=== PATIENT | female | born 1970 | race Caucasian/White ===

== ENCOUNTER 2022-06-17 12:52 | Outpatient (CLI) | payer BC, SELFPAY ==
[2022-06-17 10:30] LABS: Albumin* 4.2 g/dL (3.3-5.0); Chloride* 107 mmol/L (96-114); Potassium* 4.5 mmol/L (3.6-5.1); Sodium* 140 mmol/L (135-149)
[2022-06-17 10:32] LABS: Cholesterol* 193 mg/dL (90-199)
[2022-06-17 10:33] LABS: Alanine Aminotransferase* 34 U/L (4-35); Alkaline Phosphatase* 45 U/L (40-150); Aspartate Amino Transferase* 29 U/L (12-35); Bilirubin Total* 0.4 mg/dL (0.1-1.5); Blood Urea Nitrogen* 16 mg/dL (7-30); Carbon Dioxide* 27 mmol/L (20-32); Creatinine* 0.9 mg/dL (0.5-1.5); Estimated Glomerular Filt Rate 76 ml/min; Glucose* 100 mg/dL (60-115); HDL Cholesterol* 57 mg/dL (>=50); LDL Cholesterol Calculated 118 mg/dL (<100); Triglycerides* 89 mg/dL (40-149)
[2022-06-17 10:40] LABS: Vitamin D 25 Hydroxy* 48 ng/mL (30-80)
== END 2022-06-17 12:53 | disposition home or self-care (01) ==
PROVIDERS: PCP Family Medicine; Visit Provider Family Medicine
DX: Z01.419 Encounter for gynecological examination (general) (routine) without abnormal findings (principal); E78.5 Hyperlipidemia, unspecified; M85.80 Other specified disorders of bone density and structure, unspecified site; E66.9 Obesity, unspecified
CPT/HCPCS: 80053; 80061; 82306

== ENCOUNTER 2022-07-13 13:48 | Outpatient (CLI) | payer BC, SELFPAY ==
--- NOTE | 2022-07-13 14:00 | CRLHL7_ITS ---
For Patients: As a result of the Century Cures Act, medical imaging exams and procedure reports are released immediately into your electronic medical record. You may view this report before your referring provider. If you have questions, please contact your health care provider. DXA BONE MINERAL DENSITY STUDY Current height (in): 63.0. Weight (lb): 173.0. Menopause age: Premenopausal. Ethnicity: White. 1. Have you had a previous hip or vertebral fracture? No. 2. Have you had any fractures during your adult life which did not result from significant trauma (e.g., auto accident)? No. 3. Did either of your parents have a hip fracture? No. 4. Do you smoke? No. 5. Have you ever taken Glucocorticoids? No. 6. Do you have rheumatoid arthritis? No. 7. Do you have secondary osteoporosis? No. 8. Do you drink 3 or more alcoholic drinks per day? No. 9. Are you being treated for osteoporosis? No. 10. Have you ever taken any of the following medications: Actonel, Evista, Fosamax, Miacalcin, Reclast, Boniva, Forteo, HRT (i.e. estrogen/hormone therapy), Protelos, Prolia, Vitamin D, Calcium, other ??? please specify. ANSWER: Yes, vitamin D. 11. Do you have any of the following medical conditions: Anorexia or bulimia, asthma or emphysema, end stage renal disease, hyperparathyroidism, any seizure disorders, cancer, inflammatory bowel diseases, hysterectomy, other ??? please specify. ANSWER: Yes, cancer. 12. What was your maximum height (inches)? 63. 13. Do you perform weight bearing exercise regularly? Yes. 14. Do you regularly consume dairy products? Yes. 15. Do you drink caffeinated beverages? Yes. 16. At what age did your period start? 12. 17. Are you premenopausal? Yes. 18. How many full term pregnancies have you had? 2. 19. Have you ever missed your period for more than 6 months in a row (not including or menopause)? Yes. TECHNIQUE: Bone mineral density study was performed using the [employer]. FINDINGS: The results of the study expressed as bone mineral density (BMD) are as follows: Lumbar spine L1 to L4: BMD: 0.888 g/cm2. T-score: -1.4. Z-score: -0.5. Neck Left: BMD: 0.810 g/cm2. T-score: -0.3. Z-score: 0.6. Right: BMD: 0.818 g/cm2. T-score: -0.3. Z-score: 0.7. Total Left: BMD: 0.915 g/cm2. T-score: -0.2. Z-score: 0.4. Right: BMD: 0.982 g/cm2. T-score: 0.3. Z-score: 0.9. IMPRESSION: Osteopenia. Rey Tatum M.D. Diagnostic Radiologist [email or web address] PATRICK/colleen / be/Dictated by: Rey Tatum MD @ 07/14/2022 12:45:00 PM (Electronically Signed)
== END 2022-07-13 13:49 | disposition home or self-care (01) ==
LOC: RAD 13:49
PROVIDERS: PCP Family Medicine; Visit Provider Family Medicine
DX: Z78.0 Asymptomatic menopausal state (principal); M85.89 Other specified disorders of bone density and structure, multiple sites
CPT/HCPCS: 77080

== ENCOUNTER 2023-12-15 13:28 | Outpatient (REF) | payer BC, SELFPAY ==
--- OUTSIDE RECORDS SUMMARY | 2023-12-15 13:30 | XMS_ITS ---
Author Organization [facility] Address [address] [place] [address] Care Team Providers Care Inspector Name Role Phone Unavailable Unavailable Unavailable Surgery Details Not on file Complications Check Surgery Details section. Procedure Estimated Blood Loss Check Surgery Details section. Procedure Findings Check Surgery Details section. Procedure Specimens Taken Check Surgery Details section.
--- OUTSIDE RECORDS SUMMARY | 2023-12-15 13:30 | XMS_ITS | Referral Summary ---
Author Organization [facility] Address [address] [place] [id number] Care Team Providers Care Local Sales Associate Name Role Phone Elsewhere, Pcp Primary Care Provider Unavailabl e Source Comments Patient records contain information from all sites at [facility]. For routine questions regarding patient records, call [phone] during business hours, M-F 8:00 AM - 5:00 PM Central Time. Record requests for emergency care only can be directed to [phone] at any time.[facility] Encounters Date Type Department Care Team Description 11/27/2023 Orders Only [facility] in [place], [place] [address] [place] [address] Nelly Barger APRN, CLERICAL SUPERVISOR Perimenopause (Primary Dx) 11/13/2023 Orders Only [facility] in [place], [place] [address] [place] [address] Nelly Barger APRN, CLERICAL SUPERVISOR 11/01/2023 10:43 AM CDT - 11/01/2023 11:59 PM CDT Hospital Encounter Department of Radiology in [place], [place] [address] [place] [address] Nelly Barger APRN, CLERICAL SUPERVISOR Cancer Breast Personal History; Screening Mammogram Breast Cancer Discharge Disposition: Home or Self Care 11/01/2023 3:45 PM CDT Office Visit [facility] in [place], [place] [address] [place] [address] Nelly Barger APRN, CLERICAL SUPERVISOR Asymmetry Breast (Primary Dx); Cancer Breast Personal History; Radiation Therapy Personal History; Tamoxifen Therapy; Dense Breasts, Unspecified; Osteopenia; Screening Mammogram Breast Cancer from Last 3 Months Allergies Active Allergy Reactions Criticality Noted Date Comments Pollen Extracts Other (see comments) Medium 10/09/2019 sneezing Medications Medication Sig Dispensed Refills Start Date End Date Status fexofenadine (WARNER) 180 mg tablet Take 180 mg by mouth as needed for allergies. Active fluticasone (FLONASE) 50 mcg/actuation nasal spray Administer 2 sprays into affected nostril(s) as needed. 02/14/2011 Active RHOFADE 1 % cream Apply 1 application topically as needed. Rosacea 10/16/2017 Active cholecalciferol (VITAMIN D3) 50 mcg (2,000 Unit) capsule Take 2,000 Units by mouth daily. Active oxyBUTYnin (DITROPAN) 5 mg tablet Take 1/2 Tablet by mouth twice daily and may increase to 1 tablet twice daily as needed. Strength: 5 mg 90 tablet 3 12/28/2022 Active clobetasoL (TEMOVATE) 0.05 % cream Apply 1 Application topically 2 (two) times a day. 08/07/2023 Active letrozole (FEMARA) 2.5 mg tablet Take 1 tablet (2.5 mg total) by mouth daily. Take with or without food. 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 on 02/15/2018 Pathologic stage from 01/04/2018:No Stage Recommended(ypT1a, pN0, cM0, G2, ER+, VT+, HER2+) - Signed by Antonio Dominguez M.D. on 02/15/2018 Resolved Problems Problem Noted Date Diagnosed Date Resolved Date Malignant Neoplasm Of Breast Female Right 08/17/2017 09/25/2018 Malignant Primary Neoplasm ( Unknown Site) Unspecified 09/25/2018 Overview: breast Immunizations Name Administration Dates Next Due HepA Adult 05/24/2023 HepB Adult 06/01/2023(Deferred: Other - reports has had et is utd) Influenza TIV (IM) 03/17/2017, 5,04/03/2014,2012,04/20/2010 Influenza, Injectable, Mdck, Preservative Free, Quadrivalent 04/12/2019 PCV20 06/01/2023(Deferred: Other - has not had) RZV (SHINGRIX) 06/01/2023(Deferred: Other - will verify if has had 2nd dose with pcp),08/25/2022,10/04/2021,10/04/2021(D eferred: Other - Will check with pcp) SARS-COV-2 (COVID-19) - MODERNA(Discontinued) 02/26/2021,07/01/2020,06/03/2020 Td (Adult), adsorbed 09/25/2018 Tdap 12/20/2017,02/19/2008 influenza LAIV (Nasal) (2 ye ars through 49 years) 03/26/2009,05/22/2008 influenza vaccine quad (FLUZONE/FLUARIX) (6 months and older)(PF) 03/22/2023,04/22/2022,04/21/2021,2020,04/14/2020,04/09/2009 Social History Tobacco Use Types Packs/Day Years Used Date Smoking Tobacco: Never Passive Smoke Exposure: Never Smokeless Tobacco: Never Tobacco Cessation:Counseling Given: Not Answered Alcohol Use Standard Drinks/Week Comments Yes 2 (1 standard drink = 0.6 oz pure alcohol) Social alcohol consumption of 2-4 beverages per week, but no consumption while on chemotherapy Humiliation, Afraid, Rape, and Kick questionnair e Answer Date Recorded Within the last year, have y ou been afraid of your partner or ex-partner? No 06/29/2021 Within the last year, have y ou been humiliated or emotionally abused in other ways by your partner or ex-partner? No Within the last year, have y ou been kicked, hit, slapped, or otherwise physically hurt by your partner or ex-partner? No 06/29/2021 Within the last year, have y ou been raped or forced to have any kind of sexual activity by your partner or ex-partner? No 06/29/2021 Social Connection and Isolat ion Panel [NHANES] Answer Date Recorded In a typical week, how many times do you talk on the phone with family, friends, or neighbors? More than three times a week 06/29/2021 How often do you get togethe r with friends or relatives? Once a week 06/29/2021 How often do you attend chur or tenriism services? More than 4 times per year 06/29/2021 Do you belong to any clubs o r organizations such as scientologist groups, unions, fraternal or athletic groups, or school groups? Yes 06/29/2021 How often do you attend meet ings of the clubs or organizations you belong to? More than 4 times per year 06/29/2021 Are you , , di vorced, , never , or living with a partner? 06/29/2021 AUDIT-C Answer Date Recorded Q1: How often do you have a drink containing alc ohol? 2-3 times a week 06/29/2021 Q2: How many drinks containi ng alcohol do you have on a typical day when you are drinking? 1 or 2 06/29/2021 Q3: How often do you have si x or more drinks on one occasion? Never 06/29/2021 Overall Financial Resource Strain (CARDIA) Answe r Date Recorded How hard is it for you to pa y for the very basics like food, housing, medical care, and heating? Not hard at all 06/29/2021 PHQ-2 Answer Date Recorded PHQ-2 Score 0 11/14/2018 [facility] Occupat ional Health - Occupational Stress Questionnaire Answer Date Recorded Do you feel stress - tense, restless, nervous, or anxious, or unable to sleep at night because your mind is troubled all the time - these days? Only a little 06/29/2021 Exercise Vital Sign Answer Date Recorde d On average, how many days pe r week do you engage in moderate to strenuous exercise (like a brisk walk)? 4 days 06/29/2021 On average, how many minutes do you engage in exercise at this level? 30 min 06/29/2021 Hunger Vital Sign Answer Date Recorded Within the past 12 months, y ou worried that your food would run out before you got the money to buy more. Never true 06/29/19 22 Within the past 12 months, t he food you bought just didn't last and you didn't have money to get more. Never true 06/29/2021 PRAPARE - Transportation Answer Date Re corded In the past 12 months, has l ack of transportation kept you from medical appointments or from getting medications? No 06/06 In the past 12 months, has l ack of transportation kept you from meetings, work, or from getting things needed for daily living? No 06/29/2021 Housing Stability Vital Sign Answer Samuel e Recorded In the last 12 months, was t here a time when you were not able to pay the mortgage or rent on time? No 06/29/2021 In the last 12 months, how many places have you lived? 1 06/29/2021 In the last 12 months, was t here a time when you did not have a steady place to sleep or slept in a long-term (including now)? No 06/29/2021 Nutrition Answer Date Recorded On average, how many serving s of fruits and vegetables do you eat per day (serving size is equal to 1 cup or approximately the size of a tennis ball)? 4-5 06/29/2021 Dental Answer Date Recorded Dental: Regular Dentist Yes 08/07/19 21 Employment Answer Date Recorded Employment status Employed and actively working without restrictions 06/29/2021 Education Answer Date Recorded What is the highest level of school you have completed or the highest degree you have received? 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 at [facility] Hardware e.g. pins/screws/r ods [employer] [id number] / / Clp Hrzn Ti 6 [employer]inton Caputo Mickey - [id number] Implanted:Qty: 1 on 01/04/2018 by Chey Veloz M.D. at [facility] Hardware e.g. pins/screws/r ods [employer] [id number] / / Clp Hrzn Ti 6 [employer]inton [employer] Mickey - [id number] Implanted:Qty: 1 on 01/04/2018 by Chey Veloz M.D. at [facility] Hardware e.g. pins/screws/r ods [employer] [id number] / / Procedures Procedure Name Priority Date/Time Associated Diagnosis Comments BI BREAST SCREENING BILATERAL WITH TOMOSYNTHESIS RAD - Routine (most inpatients and all outpatients) 11/01/2023 11:13 AM CDT Cancer Breast Personal History Screening Mammogram Breast Cancer FOLLICLE-STIM HORMONE (FSH), S Routine 11/01/2023 10:32 AM CDT Tamoxifen Therapy Perimenopause ESTRADIOL, S Routine 11/01/2023 10:32 AM CDT Tamoxifen Therapy Perimenopause GLUCOSE, FASTING, S/P Routine 08/14/2017 12:33 PM CDT from Last 3 Months or Most Recently Relevant to Health Maintenance Results * BI Breast Screening Bilateral with Tomosynthesis (11/01/2023 11:13 AM CDT) Anatomical Region Laterality Modality Breast, Breast Imaging RST L OS, Breast Imaging ARZ LOS, Breast Imaging FLA LOS Bilateral Mammography Impressions 11/01/2023 12:23 PM CDT Benign. RECOMMENDATION: ??Annual Screening Mammogram ASSESSMENT: ??BI-RADS: 2: Benign. Narrative 11/01/2023 12:23 PM CDT EXAM: ??BI BREAST SCREENING BILATERAL WITH TOMOSYNTHESIS Current study was evaluated with a Computer Aided Detection (CAD) system. INDICATION: ??Screening mammogram. COMPARISON: ??Prior exam(s) were available and reviewed for comparison. DENSITY: ??c. The breast(s) are heterogeneously dense, which may obscure small masses. FINDINGS: ??No mammographic findings of malignancy. Posttreatment changes involving the posterior depth lower right breast and right axilla. Biopsy clips both breasts. Stable calcifications. Procedure Note Shade Nolasco M.D., Ph.D. - 11/01/2023 EXAM: BI BREAST SCREENING BILATERAL WITH TOMOSYNTHESIS Current study was evaluated with a Computer Aided Detection (CAD) system. INDICATION: Screening mammogram. COMPARISON: Prior exam(s) were available and reviewed for comparison. DENSITY: c. The breast(s) are heterogeneously dense, which may obscuresmall masses. FINDINGS: No mammographic findings of malignancy. Posttreatment changesinvolving the posterior depth lower right breast and right axilla. Biopsyclips both breasts. Stable calcifications. IMPRESSION: Benign. RECOMMENDATION: Annual Screening Mammogram ASSESSMENT: BI-RADS: 2: Benign. Nelly Barger APRN, CLERICAL SUPERVISOR IMG BI PROCEDURE S * Estradiol - (for men, children, and post-menopausal women) (11/01/2023 10:32 AM CDT) Estradiol, Mass Spectrometry, S <10 pg/mL 11/03/2023 9:28 AM CDT [facility] Comment: ----REFERENCE VALUE---- Premenopausal: 15-350 (E2 levels vary widely through the menstrual cycle.) Postmenopausal: <10 ----ADDITIONAL INFORMATION---- This test was developed and its performance characteristics determined by [facility] in a manner consistent with CLIA requirements. This test has not been cleared or approved by the U.S. Food and Drug Administration. Blood (Blood, Venous) 11/01/2023 10:32 AM CDT 11/02/2023 8:08 AM CDT Nelly Barger APRN CLERICAL SUPERVISOR LAB BLOOD NON AD D-ON Performing Organization Address [facility] Co de Phone Number [facility] [address] [place] [address] [facility] [address] [place] [address] [place] [address] * Follicle-Stimulating Hormone (FSH), Serum (11/01/2023 10:32 AM CDT) Pathologist [facility] Follicle-Stim Hormone (FSH), S 43.5 IU/L 11/01/2023 11:30 AM CDT [facility] Comment: ----REFERENCE VALUE---- Premenopausal: 2.9-14.6 IU/L (Follicular) 4.7-23.2 IU/L (Midcycle) 1.4-8.9 IU/L (Luteal) Postmenopausal: 16.0-157.0 IU/L Blood (Blood, Venous) 11/01/2023 10:32 AM CDT 11/01/2023 10:58 AM CDT KRISTIE Bowers APRN LAB BLOOD ADD-ON Performing Organization Address [facility] Co de Phone Number [facility] [address] [place] [address], [place] DTL [facility] [address] [place] [address] * Glucose, Fasting (08/14/2017 12:33 PM CDT) Pathologist [facility] Last Intake 18 HR [facility] Glucose, P 90 70 - 100 MG/DL [facility] 08/14/2017 12:3 3 PM CDT 08/14/2017 12:33 PM CDT Dasha Portillo M.D. LAB BLOOD NON ADD-ON [facility] [address] [place] [address], [facility] from Last 3 Months or Most Recently Relevant to Health Maintenance Advance Directives For more information, please contact: [phone] Documents on File Type Date Recorded Patient Cloth Mender Expl anation Advance Directives 08/08/2017 12:00 AM Lega cy document. See document viewer. * Full Code (Latest Code Status on File) Date Activated Date Inactivated Comments 08/20/2021 12:39 PM 08/20/2021 4:20 PM Question Answer Comments Full Code: Not Discussed Due to: Not medically appropriate * Full Code Date Activated Date Inactivated Comments 08/20/2021 9:31 AM 08/20/2021 12:39 PM Question Answer Comments Full Code: Discussed * Full Code Date Activated Date Inactivated Comments 01/04/2018 6:40 AM 01/04/2018 4:58 PM Question Answer Comments Full Code: Not Discussed Due to: Not medically appropriate Care Teams Local Sales Associate Relationship Specialty Start Date End Date Elsewhere, Pcp PCP - General Internal Medicine 08/20/21 Merry Munson M.D. [address] [place] [address] Medical Oncology 01/01/18 Elva Adhikari M.D. [address] [address] Family Medicine 01/04/18
--- OUTSIDE RECORDS SUMMARY | 2023-12-15 13:30 | XMS_ITS | Clinical Summary ---
Author Organization [facility] Address [address] [place] [address] Care Team Providers Care Foundry Worker Apprentice Name Role Phone Elsewhere, Pcp Primary Care Provider Unavailabl e Source Comments Patient records contain information from all sites at [facility]. For routine questions regarding patient records, call [phone] during business hours, M-F 8:00 AM - 5:00 PM Central Time. 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 on 02/15/2018 Pathologic stage from 01/04/2018:No Stage Recommended(ypT1a, pN0, cM0, G2, ER+, HI+, HER2+) - Signed by Antonio Dominguez M.D. on 02/15/2018 Resolved Problems Problem Noted Date Diagnosed Date Resolved Date Malignant Neoplasm Of Breast Female Right 08/17/2017 09/25/2018 Malignant Primary Neoplasm ( Unknown Site) Unspecified 09/25/2018 Overview: breast Encounters Date Type Department Care Team Description 11/27/2023 Orders Only [facility] in [place], [place] [address] [place] [address] Nelly Barger APRN, DIRECTOR OF ESTATE Perimenopause (Primary Dx) 11/13/2023 Orders Only [facility] in [place], [place] [address] [place] [address] Nelly Barger APRN, DIRECTOR OF ESTATE 11/01/2023 3:45 PM CDT Office Visit [facility] in [place], [place] [address] [place] [address] Nelly Barger ENGINEERING PROGRAM MANAGER, DIRECTOR OF ESTATE Asymmetry Breast (Primary Dx); Cancer Breast Personal History; Radiation Therapy Personal History; Tamoxifen Therapy; Dense Breasts, Unspecified; Osteopenia; Screening Mammogram Breast Cancer 11/01/2023 10:43 AM CDT - 11/01/2023 11:59 PM CDT Hospital Encounter Department of Radiology in [place], [place] [address] [place] [address] Nelly Barger, ENGINEERING PROGRAM MANAGER, DIRECTOR OF ESTATE Cancer Breast Personal History; Screening Mammogram Breast Cancer Discharge Disposition: Home or Self Care from Last 3 Months Immunizations Name Administration Dates Next Due HepA [...] quad (FLUZONE/FLUARIX) (6 months and older)(PF) 03/22/2023,04/22/2022,04/21/2021,2020,04/14/2020,04/09/2009 Family History Medical History Relation Name Comments Basal cell carcinoma of skin Brother 1 Dain Cardiac arrhythmia Brother 1 Dain Heart attack [facility] Cousin Maternal Cousi n No Known Problems Daughter Alcohol abuse Father Ed Shahzad Recovered Basal cell carcinoma of skin Father Ed Shahzad Coronary artery disease Father Ed Shahzad Araceli nary Artery disease and stent Diabetes Father Ed Shahzad Type 2 diabetes Heart failure Father Ed Shahzad at 86 Hyperlipidemia Father Ed Shahzad Hypertension Father Ed Shahzad Parkinson disease Father Ed Shahzad Skin cancer Father Ed Shahzad Sleep apnea Father Ed Shahzad Stroke Father Ed Shahzad Stomach cancer Maternal Grandfather Hodgkin's lymphoma Maternal Grandmother Kenyatta Root Other cancer Maternal Grandmother Kenyatta Root Hodgk ins Disease Arthritis Mother Shari Pike Basal cell carcinoma of skin Mother Shari Pike Endometrial cancer Mother Shari Pike Skin cancer Mother Shari Pike Squamous cell carcinoma Mother Shari Pike Uterine cancer Mother Shari Pike Heart attack Paternal Grandfather Ish Root Other cancer Paternal Grandfather Ish Root Stoma ch Cancer Stroke Paternal Grandmother Amalia Pike Basal cell carcinoma of skin Sister 1 danny 2 sisters, both have had basal cell carcinoma Basal cell carcinoma Sister 2 reynaldo No Known Problems Son Relation Name Status Comments Brother 1 Dain Alive Brother 2 Julio Cesar Morse Cousin Daughter Alive Father Oumar Pike Maternal Grandfather Maternal Grandmother Kenyatta Root Mother Shari Pike Alive Paternal Grandfather Ish Root Paternal Grandmother Amalia Pike Sister 1 danny Alive Sister 2 reynaldo Alive Son Alive Social History Tobacco Use Types Packs/Day Years [...] week 06/29/2021 How often do you attend [facility] or hoahaoism services? More than 4 times per year 06/29/2021 Do you belong to any clubs o r organizations such as islam groups, unions, fraternal or athletic groups, or [...] Answer Date Recorded PHQ-2 Score 0 11/14/2018 [facility] of Occupat ional Health - Occupational Stress [...] place to sleep or slept in a group home (including now)? No 06/29/2021 Nutrition Answer Date Recorded On average, how many serving s of fruits and vegetables do you eat per day (serving size is equal to 1 cup or approximately the size of a tennis ball)? 4-5 06/29/2021 Dental Answer Date Recorded Dental: Regular Dentist Yes 08/07/19 Employment Answer Date Recorded Employment status Employed [...] PM CDT Pulse 76 06/12/2023 10:43 AM MEDICAL RECORDS MANAGER Temperature 36.6 ??C (97.9 ??F) 08/20/2021 12:57 PM C DT Respiratory Rate 16 08/20/2021 1:38 PM CDT Oxygen Saturation 100% 08/20/2021 12:57 PM CDT Inhaled Oxygen Concentration - - Weight 77.6 kg (171 lb 1.2 oz) 11/01/2023 12:57 PM CDT Height 159.2 cm (5' 2.68) 11/01/2023 12:57 PM C DT Body Mass Index 30.62 11/01/2023 12:57 PM CDT Plan of Treatment Health Maintenance Due Date Last Done Comments CT Colonography 1969 Cologuard 1969 FIT 1969 HIV Screening 1969 Hepatitis C Screening 1969 Pneumococcal vaccine (0-64 years) (1 of 2 - PCV) 1975 Hepatitis B Vaccines (1 of 3 - 19+ 3-dose series) 1988 Lipid (Cholesterol) Screening 08/04/2016 08/05/2011 (Performed elsewhere) Fasting Glucose for Diabetes Screening 08/14/2020 08/14/2017 Depression Screening (Annual PHQ-2) 06/05/2023 Hepatitis A Vaccines (2 of 2 - Risk 2-dose series) 11/23/2023 05/24/2023 Influenza Vaccine (#1) 2024 , 04/22/2022, 04/21/2021, Additional history exists Mammogram 10/31/2024 11/01/2023, 10/03, 10/04/2021, Additional history exists Cervical Cancer Screening 06/22/20252022, 07/08/2014 (Performed elsewhere) DTaP,Tdap,and Td Vaccines (4 - Td or Tdap) 09/25/2028 09/25/2018, 12/20/2017, 02/19/2008 Colonoscopy 06/01/2029 06/01/2019 (Perf ormed elsewhere) Colorectal Cancer Screening 06/01/2029 Zoster Vaccines Completed 08/25/2022, 10/04/2021 COVID-19 Vaccine Completed 03/22/2023, , 02/26/2021, Additional history exists HPV Vaccines Aged Out No longer eligi ble based on patient's age to complete this topic Medical Devices Implanted Type Area Switch Inspector Device Identifier Shelf Expiration Date Model / Serial / Lot Clp Hrzn Ti 6 Quinton Caputo Mickey - [id number] Implanted:Qty: 1 on 01/04/2018 by Chey Veloz M.D. at [facility] Hardware e.g. pins/screws/r ods [employer] [place] [id number] / / Clp Hrzn Ti 6 Quinton Caputo Mickey - [id number] Implanted:Qty: 1 on 01/04/2018 by Chey Veloz M.D. at [facility] Hardware e.g. pins/screws/r ods [employer] [id number] / / Clp Hrzn Ti 6 Quinton Caputo Mickey - [id number] Implanted:Qty: 1 on 01/04/2018 by Chey Veloz M.D. at [facility] Hardware e.g. pins/screws/r od[employer]etcetera [id number] / / Procedures Procedure Name Priority Date/Time [...] Annual Screening Mammogram ASSESSMENT: BI-RADS: 2: Benign. KRISTIE Bowers APRN IMG BI PROCEDURE S * Estradiol - (for men, children, and post-menopausal women) (11/01/2023 10:32 AM CDT) Estradiol, Mass Spectrometry, S <10 pg/mL 11/03/2023 9:28 AM CDT [facility] Comment: ----REFERENCE VALUE---- Premenopausal: 15-350 (E2 levels vary widely through the menstrual cycle.) Postmenopausal: <10 ----ADDITIONAL INFORMATION---- This test was developed and its performance characteristics determined by [facility] in a manner consistent with CLIA requirements. This test has not been cleared or approved by the U.S. Food and Drug Administration. Blood (Blood, Venous) 11/01/2023 10:32 AM CDT 11/02/2023 8:08 AM CDT KRISTIE Bowers APRN LAB BLOOD NON AD D-ON [facility] [address] [place] [address] [facility] [address] [place] [address] [place] [address] * Follicle-Stimulating Hormone (FSH), Serum (11/01/2023 10:32 AM CDT) Follicle-Stim Hormone (FSH), S 43.5 IU/L 11/01/2023 11:30 AM CDT [facility] Comment: ----REFERENCE VALUE---- Premenopausal: 2.9-14.6 IU/L (Follicular) 4.7-23.2 IU/L (Midcycle) 1.4-8.9 IU/L (Luteal) Postmenopausal: 16.0-157.0 IU/L Blood (Blood, Venous) 11/01/2023 10:32 AM CDT 11/01/2023 10:58 AM CDT Nelly Barger APRN, DIRECTOR OF ESTATE LAB BLOOD ADD-ON Performing Organization Address [facility] Co de Phone Number [facility] [place] [address] [place] [address], [place] DTL [facility] [address] [place] [address] * Glucose, Fasting (08/14/2017 12:33 PM CDT) Last Intake 18 HR [facility] Glucose, P 90 70 - 100 MG/DL [facility] [place] 08/14/2017 12:3 3 PM CDT 08/14/2017 12:33 PM CDT Dasha Portillo M.D. LAB BLOOD NON ADD-ON Performing Organization Address [facility] de Phone Number [facility] [place] [address] [place], [place] [phone] [place] [address] from Last 3 Months or Most Recently Relevant to Health Maintenance Advance Directives For more information, please contact: [phone] Documents on File Type Date Recorded Patient Cargo Inspector Expl anation Advance Directives 08/08/2017 12:00 AM [...] Due to: Not medically appropriate Care Teams Foundry Worker Apprentice Relationship Specialty Start Date End Date Elsewhere, Pcp PCP - General Internal Medicine 08/20/21 Merry Munson M.D. [address] [place] [id number] Medical Oncology 01/01/18 Elva Adhikari M.D. [address] [address] Family Medicine 01/04/18
--- OUTSIDE RECORDS SUMMARY | 2023-12-15 13:30 | XMS_ITS | Encounter Summary ---
Author Organization [facility] Address [address] [place] [address] Care Team Providers Care Circulation Manager Name Role Phone Elsewhere, Pcp Primary Care Provider Unavailabl e Reason for Referral * Outpatient (Routine) - Closed Specialty Diagnoses / Procedures Referred By Dario lemus Referred To Contact Diagnoses Cancer Breast Personal History Screening Mammogram Breast Cancer Procedures BI Breast Screening Bilateral with Tomosynthesis Nelly Barger APRN, CNS [address] [place] [phone] [facility] Referral ID Status Reason Start Date Expiration Date Visits Re quested Visits Authorized [id number] Closed 06/12/2023 2024 1 1 Reason for Visit * Outpatient (Routine) - Closed Specialty Diagnoses / Procedures Referred By Dario lemus Referred To Contact Diagnoses Cancer Breast Personal History Screening Mammogram Breast Cancer Procedures BI Breast Screening Bilateral with Tomosynthesis Nelly Barger APRN, CNS [address] [place] [phone] [facility] Referral ID Status Reason Start Date Expiration Date Visits Re quested Visits Authorized [id number] Closed 06/12/2023 2024 1 1 Encounter Details Date Type Department Care Team (Latest Contact Info) Description 11/01/2023 10:43 AM CDT - 11/01/2023 11:59 PM CDT Hospital Encounter Department of Radiology in [place], [place] [address] [place] [address] Nelly Barger, BANK MESSENGER, CERTIFIED NURSE OPERATING ROOM [address] [place] [phone] Cancer Breast Personal History; Screening Mammogram Breast Cancer Discharge Disposition: Home or Self Care Social History Tobacco Use Types Packs/Day Years Used Date Smoking Tobacco: Never Passive Smoke Exposure: Never Smokeless Tobacco: Never Alcohol Use Standard Drinks/Week Comments Yes 2 [...] 06/29/2021 How often do you attend chur ch or christianity services? More than 4 times per year 06/29/2021 Do you belong to any clubs o r organizations such as sabianist groups, unions, fraternal or athletic groups, or [...] Answer Date Recorded PHQ-2 Score 0 11/14/2018 [facility] [place] of Occupat ional Health - Occupational Stress [...] place to sleep or slept in a mcc (including now)? No 06/29/2021 Nutrition Answer Date [...] Orientation Straight 11/13/2017 3: 35 PM CDT documented as of this encounter Medications at Time of Discharge Medication Sig Dispensed Refills Start Date End Date cholecalciferol (VITAMIN D3) 50 mcg (2,000 Unit) capsule Take 2,000 Units by mouth daily. clobetasoL (TEMOVATE) 0.05 % cream Apply 1 Application topically 2 (two) times a day. 08/07/2023 fexofenadine (WARNER) 180 mg tablet Take 180 mg by mouth as needed for allergies. fluticasone (FLONASE) 50 mcg/actuation nasal spray Administer 2 sprays into affected nostril(s) as needed. 02/14/2011 oxyBUTYnin (DITROPAN) 5 mg tablet Take 1/2 Tablet by mouth twice daily and may increase to 1 tablet twice daily as needed. Strength: 5 mg 90 tablet 3 12/28/2022 RHOFADE 1 % cream Apply 1 application topically as needed. Rosacea 10/16/2017 tamoxifen (NOLVADEX) 20 mg tablet TAKE 1 TABLET(20 MG) BY MOUTH DAILY. SWALLOW WHOLE. DO NOT SPLIT, CHEW, OR CRUSH. TAKE WITH OR WITHOUT FOOD 90 tablet 3 12/27/2022 11/13/2023 documented as of this encounter Plan of Treatment Not on file documented as of this encounter Procedures Procedure Name Priority Date/Time Associated Diagnosis Comments BI BREAST SCREENING BILATERAL WITH TOMOSYNTHESIS RAD - Routine (most inpatients and all outpatients) 11/01/2023 11:13 AM CDT Cancer Breast Personal History Screening Mammogram Breast Cancer documented in this encounter Results * BI Breast Screening Bilateral with [...] ASSESSMENT: BI-RADS: 2: Benign. Nelly Barger APRN, KRISTIE IMG BI PROCEDURE S documented in this encounter Visit Diagnoses Diagnosis Cancer Breast Personal History Screening Mammogram Breast Cancer documented in this encounter Care Teams Circulation Manager Relationship Specialty Start Date End Date Elsewhere, Pcp PCP - General Internal Medicine 08/20/21 Merry Munson M.D. [address] [place] [id number] Medical Oncology 01/01/18 Elva Adhikari M.D. [address] [address] Family Medicine 01/04/18 documented as of this encounter
--- OUTSIDE RECORDS SUMMARY | 2023-12-15 13:30 | XMS_ITS | Encounter Summary ---
Author Organization [facility] Address [address] [place] [id number] Care Team Providers Care No Experience Name Role Phone Elsewhere, Pcp Primary Care Provider Unavailabl e Reason for Referral * Outpatient (Routine) - Authorized Specialty Diagnoses / Procedures Referred By Contac t Referred To Contact Diagnoses Cancer Breast Personal History Screening Mammogram Breast Cancer Procedures BI Breast Screening Bilateral with Tomosynthesis Nelly Barger APRN, CNS [address] [place] [phone] [facility] Referral ID Status Reason Start Date Expiration Date V isits Requested Visits Authorized [id number] Authorized 11/01/2023 10/31/2024 1 1 * Outpatient (Routine) - Authorized Specialty Diagnoses / Procedures Referred By Contac t Referred To Contact Breast Clinic Nelly Barger APRN, CNS [address] [place] [address] [facility] Referral ID Status Reason Start Date Expiration Date V isits Requested Visits Authorized [id number] Authorized 11/01/2023 05/02/2025 1 1 Scheduling Instructions PAC * Outpatient (Routine) - Authorized Specialty Diagnoses / Procedures Referred By Contac t Referred To Contact Diagnoses Dense Breasts, Unspecified Procedures NM Molecular Breast Imaging Nelly Barger APRN, CNS [address] [place] [phone] [facility] Referral ID Status Reason Start Date Expiration Date V isits Requested Visits Authorized [id number] Authorized 11/01/2023 10/31/2024 8 8 Reason for Visit * Reason Comments Consult * Outpatient (Routine) - Closed Specialty Diagnoses / Procedures Referred By Dario lemus Referred To Contact Breast Clinic Nelly Barger APRN, CNS [address] [place] [phone] [facility] Referral ID Status Reason Start Date Expiration Date Visits Re quested Visits Authorized [id number] Closed 06/12/2023 2026 1 1 Encounter Details Date Type Department Care Team ([facility] st Contact Info) Description 11/01/2023 3:45 PM CDT Office Visit Breast Diagnostic Clinic in [place], [place] [address] [place] [phone] Nelly Barger APRN, KRISTIE [address] [place] [phone] Asymmetry Breast (Primary Dx); Cancer Breast Personal History; Radiation Therapy Personal History; Tamoxifen Therapy; Dense Breasts, Unspecified; Osteopenia; Screening Mammogram Breast Cancer Social History Tobacco Use Types Packs/Day Years [...] often do you attend chur ch or confucianist services? More than 4 times per year 06/29/2021 Do you belong to any clubs o r organizations such as jewish groups, unions, fraternal or athletic groups, or [...] Answer Date Recorded PHQ-2 Score 0 11/14/2018 [facility] - [...] place to sleep or slept in a senior care (including now)? No 06/29/2021 Nutrition Answer Date [...] PM CDT documented as of this encounter Last Filed Vital Signs Vital Sign Reading Time Taken Comments Blood Pressure 131/87 11/01/2023 12:57 PM CDT Pulse - - Temperature - - Respiratory Rate - - Oxygen Saturation - - Inhaled Oxygen Concentration - - Weight 77.6 kg (171 lb 1.2 oz) 11/01/2023 12:57 PM CDT Height 159.2 cm (5' 2.68) 11/01/2023 12:57 PM C DT Body Mass Index 30.62 11/01/2023 12:57 PM CDT documented in this encounter Progress Notes * Nelly Barger, ENTERPRISE ARCHITECT, DIRECTOR OF SOCIAL MEDIA MARKETING - 11/01/2023 3:45 PM CDT CHIEF COMPLAINT / REASON FOR VISIT History of right breast cancer HISTORY OF PRESENT ILLNESS Catina Mosqueda is a 53 y.o. female from [place], [place]. Her breast cancer history is as follows: Oncology History Malignant Neoplasm Of Unspecified Site Of Laterality Unknown Female Breast Adenocarcinoma (HCC) 08/01/2017 Initial Diagnosis Malignant Neoplasm Of Breast Adenocarcinoma (HCC): 08/01/2017 Surgery and Procedures 1. June 2017: At age 47-year-old and being premenopausal the patient detected a right breast mass 2. July 2017, the mass was about measuring 3 x 3 cm on exam at the 7 o'clock position. Diagnostic imaging revealed potentially two connected masses by ultrasound measuring 2.9 and 1.5 cm respectively with an overall area measuring 3.8 cm in total. Subsequent imaging with an MRI revealed a 3.1-cm mass with another separate 8-mm lesion that was subsequently biopsied and was found to be benign. Biopsy of the breast mass revealed a grade 3 invasive ductal carcinoma, ER/AZ strongly positive (95%and 88% respectively), HER-2 positive by IHC. Right axillary ultrasound showed a suspicious lymph node that was biopsied and negative for malignancy. 3. August 2017: Neoadjuvant TCH initiated 4. January 04, 2018: Wide local excision and sentinel lymph node biopsy, at [facility]. Pathology revealed a 5 mm area of cancer with about 5% cellularity in this region. Margins were negative, at the end ofsurgery. Two sentinel lymph nodes were benign. - 08/23/2017 Chemotherapy August 2017: Neoadjuvant TCH initiated; additional post-surgery herceptin - 03/27/2018 Radiation Therapy Completed (All Doses in cGy) Plans F1 BH Rbreast Most recent treatment: 267 (fraction 15) on 03/21/2018 Total planned: 4,005 (15 fractions) Elapsed Course Treatment Days: 20 F16 RbrstB Most recent treatment: 250 (fraction 4) on 03/27/2018 Total planned: 1,000 (4 fractions) Elapsed Course Treatment Days: 04/05/2018 - Biological/Targeted/Hormone Therapy Initiated tamoxifen 09/30/2020 Biopsy/Pathology Stereotactic right breast core biopsy with pathology revealing scarring in fat necrosis with dystrophic calcification Mrs. Mosqueda continues on tamoxifen with no new side effects. Overall her general health has been satisfactory, other than some family stress. She notes no new breast concerns. We had spoken last time about having a bra fitting and possibly using a filler prosthesis. I provided prescriptions, but the patient notes that she has not had time to get this done. She denies any new constitutional symptoms such as unexplained weight loss, fevers, night sweats, bone pain, persistent cough, abdominal pain, or headaches. Wt Readings from Last 6 Encounters: 11/01/23 77.6 kg 06/12/23 77.3 kg 10/12/22 78.5 kg 10/04/21 79.5 kg 08/20/21 76.9 kg 07/15/21 77.1 kg BREAST CANCER RISK PROFILE She is two, para two, 1st parity at the age of 30. She breast-fed. Menarche at the age of 12. Uterus and ovaries are maintained. control pills for more than 11 years in the past. MirenaIUD in place for around 15 years and removed at the time of her breast cancer diagnosis. LMP over one year ago. No hormone replacement therapy. Tamoxifen initiated April 2018. No fertility medications or BILLIE exposure. No breast cyst aspiration or biopsies previously to her breast cancer diagnosis. Has had radiation treatments for breast cancer. Never Smoked. No 2nd hand cigarette smoke exposure. Alcohol use 3-5 alcoholic drinks a week. She does exercise regularly. Genetic testing negative for mutation. SOCIAL Mrs. Mosqueda is . She and her have a son and a daughter. 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 Her is a gliding pilot instructor for [employer]. OBJECTIVE PHYSICAL EXAM General: Pleasant woman in no acute distress. BMI 30.6. Lymph: No palpable submandibular, submental, cervical, supraclavicular, infraclavicular, or axillary adenopathy. A well-healed scar is noted at the right axilla. Skin: Warm and dry with normal turgor. Extremities: Good range of motion of both shoulders. No overt signs of upper extremity lymphedema. Breasts: Breasts are somewhat asymmetric, with the right a bit smaller than the left secondary to surgery and radiation. Nipples are everted bilaterally with no nipple discharge or lesions noted. A well-healed scar is noted at the inferior right breast. There is also an incision high in the left chest wall from previous port placement. Palpation reveals a dominant, thickened inframammary ridge onthe right which is stable from previous exams. Palpation reveals no dominant masses or nodularity in either breast. ASSESSMENT/PLAN #1 Cancer Breast Personal History #2 Asymmetry Breast #3 Radiation Therapy Personal History #4 Tamoxifen Therapy #5 Dense Breasts, Unspecified #6 Osteopenia Clinical examination today is satisfactory and stable. A bilateral screening mammogram performed earlier today revealed heterogeneously dense breast tissue with no mammographic findings for malignancy. I did review the reports and images on QREADS today with the patient. We did have her FSH and estradiol check today to see if we could switch her from tamoxifen to an aromatase inhibitor. FSH shows her to be postmenopausal, however the estradiol is still pending. I reminded her that if she does switch to an aromatase inhibitor, we would like to monitor her bone density. Her bone density done in 2019 showed osteopenia. She feels she may have had a bone density test done in the interim, however I can not see those results in her history. She will check and let me know if she has anymore updated results. We did spend some time discussing calcium and vitamin-D intake/supplementation. She does have dairy in her diet. I cautioned her to limit calcium to around 1200mg per day. She currently is taking 2000 units of vitamin-D on a daily basis and has not had a vitamin-D checked as far as I can tell. She does plan to check in with her primary care provider and I reminded her that she should have the vitamin-D level checked along with any other labs they recommend. We did talk about exercise and strength training. I provided her with an exercise booklet today. BREAST CLINIC RECOMMENDATIONS: 1. Monthly breast observation and palpation. Please report any changes promptly. 2. Clinical breast/chest wall examination annually. 3. Breast imaging: Annual bilateral screening mammogram, due October 2024. Consider molecular breast imaging (MBI) every other year due to dense breast tissue. She feels she may wish to do that this fall. 4. Recommend periodic full body skin checks in Dermatology due to family history and her own sun exposure history. PATIENT EDUCATION Ready to learn, no apparent learning barriers were identified; learning preferences include listening. Explained diagnosis and treatment plan; patient expressed understanding of the content. documented in this encounter Plan of Treatment Scheduled Orders Name Type Priority Associated Diagnoses Order Schedule NM Molecular Breast Imaging Imaging RAD - Routine (most inpatients and all outpatients) Density Breast Expected: 02/14/2024 (Approximate), Expires: 01/31/2025 BI Breast Screening Bilateral with Tomosynthesis Imaging RAD - Routine (most inpatients and all outpatients) Cancer Breast Personal History Screening Mammogram Breast Cancer Expected: 10/31/2024 (Approximate), Expires: 10/31/2025 Scheduled Referrals Name Type Priority Associated Diagnoses Orde r Schedule Breast Clinic office visit (clinic) Outpatient Referral Routine Expected: 10/31/2024 (Approximate), Expires: 10/31/2025 documented as of this encounter Visit Diagnoses Diagnosis Asymmetry Breast- Primary Cancer Breast Personal History Radiation Therapy Personal History Tamoxifen Therapy Dense Breasts, Unspecified Osteopenia Screening Mammogram Breast Cancer documented in this encounter Care Teams No Experience Relationship Specialty Start Date End Date Elsewhere, Pcp PCP - General Internal Medicine 08/20/21 Merry Munson M.D. [address] [place] [phone] Medical Oncology 01/01/18 Elva Adhikari M.D. [address] [phone] Family Medicine 01/04/18 documented as of this encounter
--- OUTSIDE RECORDS SUMMARY | 2023-12-15 13:30 | XMS_ITS | Encounter Summary ---
Author Organization [facility] Address [address] [place] [id number] Care Team Providers Care Visual Merchandise Manager Name Role Phone Elsewhere, Pcp Primary Care Provider Unavailabl e Encounter Details Date Type Department Care Team (Late st Contact Info) Description 11/13/2023 Orders Only Breast Diagnostic Clinic in [place], [place] [address] [place] [phone] Nelly Barger, PHOTO SPECIALIST, ATMOSPHERIC SCIENTIST [address] [place] [address] Social History Tobacco Use Types Packs/Day Years [...] often do you attend chur ch or rastafarian services? More than 4 times per year 06/29/2021 Do you belong to any clubs o r organizations such as christian groups, unions, fraternal or athletic groups, or [...] Answer Date Recorded PHQ-2 Score 0 11/14/2018 [facility] Answer Date Recorded [...] place to sleep or slept in a correction (including now)? No 06/29/2021 Nutrition Answer Date [...] PM CDT documented as of this encounter Plan of Treatment Not on file documented as of this encounter Visit Diagnoses Not on filedocumented in this encounter Care Teams Visual Merchandise Manager Relationship Specialty Start Date End Date Elsewhere, Pcp PCP - General Internal Medicine 08/20/21 Merry Munson M.D. [address] [place] [address] Medical Oncology 01/01/18 Elva Adhikari M.D. [facility] [address] [place] [address] Family Medicine 01/04/18 documented as of this encounter
--- OUTSIDE RECORDS SUMMARY | 2023-12-15 13:30 | XMS_ITS ---
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 on 02/15/2018 Pathologic stage from 01/04/2018:No Stage Recommended(ypT1a, pN0, cM0, G2, ER+, NE+, HER2+) - Signed by Antonio Dominguez M.D. on 02/15/2018 Current Oncology Plans No current plan information found. Past Plans No past plan information found. Radiation Treatments * Plan Last Treated On Elapsed Days Fractions Treated Prescribed Fraction Dose Prescribed Total Dose F16 BH RbrstB 03/27/2018 26 4 of 4 250 cGy 1,000 cGy F1 Rbreast 03/21/2018 20 15 of 15 267 cGy 4,005 cGy Reference Point Last Treated On Elapsed Days Session Dose Total Dose [id number] 03/27/2018 26 250 cGy 5,005 cGy Treatment Summaries Malignant Neoplasm Of Breast Female Right (HCC)* Your Survivorship Care Plan Provided on 07/25/2018 General Information Patient name Catina Mosqueda (home) Date of 1970 Introduction This is your personal survivorship care plan. It is both a summary of your treatment history as well as a follow-up plan to guide you through the management of your continued medical care. The plan was developed by a multidisciplinary team of [facility] cancer providers to help you understand, discuss, and plan post-treatment needs with your healthcare providers, including your primary care team. It includes detailed medical information regarding your treatment as well as information relating to potential shorter and long-term side-effects post-treatment. What is Survivorship? The most widely used definition of survivorship care involves the following elements: 1. Prevention of recurrent and new cancers, and of other late effects; 2. Surveillance for cancer spread, recurrence, or second cancers; assessment of medical and psychosocial late effects; 3. Intervention for consequences of cancer and its treatment, for example: medical problems such aslymphedema and sexual dysfunction; symptoms, including pain and fatigue; psychological distress experienced by cancer survivors and their caregivers; and concerns related to employment, insurance, and disability; and 4. Coordination between specialists and primary care providers to ensure that all of the survivors health needs are met. Care Team Patient Care Team: Chey Veloz M.D. as Consulting Physician (General Surgery) Merry Munson M.D. (Medical Oncology) Elva Adhikari M.D. (Family Medicine) Cancer Diagnosis and Staging Information Diagnosis Malignant Neoplasm Of Breast Female Right (HCC) Diagnosis date 08/17/2017 Staging information Cancer Staging Malignant Neoplasm Of Breast Adenocarcinoma (HCC) Staging form: Breast, AJCC 8th Edition - Clinical stage from 07/26/2017: Stage IB (cT2, cN0, cM0, G3, ER: Positive, NE: Positive, HER2: Positive) - Pathologic stage from 01/04/2018: No Stage Recommended (ypT1a, pN0, cM0, G2, ER: Positive, NE: Positive, HER2: Positive) Genetic Testing Performed Genetic testing through [facility] ??negative for all the 28 genes tested including BRCA1 and BRCA2. Background Information Family history Cancer-related family history includes Breast cancer in her cousin; Stomach cancer in her maternal grandfather. Social History Alcohol use reports that she drinks about 1.2 oz of alcohol per week . Tobacco use reports that she has never smoked. She has never used smokeless tobacco. Treatment Summary Breast Cancer Oncology History 1. Right breast mass evaluated with diagnostic mammogram on July 24, 2017 that demonstrated an irregular mass in the right central inferior breast posterior depth underlying the palpable triangular skin marker. ??Additionally there is a questionable asymmetry in the left superior breast posterior depth and an asymmetry in the left medial breast middle depth. 2. Right breast ultrasound July 24, 2017 demonstrates an irregular mass measuring 3.2 x 1.9 x 2.8 cm at the 7 o'clock position 7 cm from the nipple. ??Additionally there is a 0.6 x 0.9 x 0.8 cm irregular mass in the right breast 6:00 position 6 cm from the nipple. 3. Ultrasound guided biopsy right breast 7:00 position July 26, 2017 with a ring shaped biopsy clip placement. ??Histologic exam reveals grade 3 invasive ductal carcinoma. ??There is no ductal carcinoma in situ. ??There is no lymphovascular invasion. ??Estrogen receptor positive 95%, progesterone receptor-positive 88% HER2 3+. 4. Chest x-ray on August 04, 2017 shows no evidence of metastatic disease. 5. Breast MRI on August 04, 2017 in [place] shows a 3.1 x 2.3 x 2.5 cm irregular enhancing mass in the lower outer right breast 7:00 position posterior depth consistent with the patient's biopsy-proven malignancy. ??There is a focus of metallic susceptibility artifact within the mass which should represent a biopsy marker clip. ??There is an 8 mm focal enhancing mass in the outer right breast 8:30 to 9:00 position posterior depth located approximately 2.4 cm cranial to the known biopsy proven malignant mass. ??There are 2-3 mildly prominent right level 1 axillary lymph nodes. ??There are no suspicious masses in the left breast. ??There is no left axillary adenopathy. ??There is no internal mammary lymphadenopathy. 6. Left diagnostic mammogram August 08, 2017 shows asymmetries in the left superior and medial breastthat efface on spot compression views. ?? 7. Targeted ultrasound of the right breast on August 08, 2017 shows a dominant mass measuring 2.9 x 2.4 x 1.9 cm with a biopsy clip within it at 7:00 position 7 cm from the nipple representing the biopsy proven malignancy. ??At 6:00 position 6 cm from the nipple there is an additional 0.7 x 1 x 1.5 cm irregular hypoechoic area which corresponds to the mass identified on the outside ultrasound. ??Onfurther evaluation these 2 areas appear to be connected with the entire area measuring up to 3.8 cm. ??Additional evaluation was performed of the right lateral breast for the mass identified on the MRI in this region. ??There is no definite sonographic correlation for the MRI detected mass. ??Ultrasound of the right axilla demonstrates 1 minimally thickened lymph node with a cortical thickness measuring up to 3.7 mm. Targeted ultrasound of the left superior medial breast demonstrates no sonographic abnormality in these regions to correlate with the asymmetry that effaced on the spot compression mammograms in these regions. 8. MRI guided biopsy of the mass in the outer right breast posterior depth on August 09, 2017. ??Histologic exam demonstrates fibrocystic changes that are concordant with MRI findings. 9. Ultrasound-guided fine-needle aspiration biopsy of a right axillary lymph node on August 14, 2017demonstrates reactive changes. 10. Genetic testing through [facility] ??negative for all the 28 genes tested including BRCA1 and BRCA2. 11. Evaluated in Medical Oncology, Radiation Oncology and General surgery on August 16, 2017 with the plan to proceed with neoadjuvant chemotherapy followed by breast conservation therapy. 12. Neoadjuvant TCH (Taxotere, carboplatin, Herceptin) chemotherapy for 6 cycles at the [facility] from August 24, 2017 through December 07, 2017. ?? 13. Right breast mammogram December 21, 2017 demonstrates marked reduction in the known malignancy in the right lower outer breast. ??Only a small amount of ill- defined tissue was remaining around the tissue marker. 14. Right breast ultrasound December 21, 2017 demonstrates a small amount of hypoechoic tissue surrounding the metallic tissue marker at the 7 o'clock position 7 cm from the nipple measuring 9 x 5 x 5 mm. Ultrasound of the axilla demonstrates no evidence of axillary adenopathy. 15. Right breast seed localization wide local excision and right axillary sentinel lymph node biopsy was performed by Dr. Veloz on January 04, 2018. ??Histologic exam demonstrates invasive ductal carcinoma grade 2 measuring 5 x 3 x 3 mm. No ductal carcinoma in situ was identified. ??Margins are negative for invasive carcinoma. ??The distance to the closest margin is lateral at 4 mm. There is no lymphovascular invasion identified. ??Two axillary sentinel nodes are negative. ??There is no prominent fibrous scarring in the nodes. ??ypT1a ypN0. 16. Evaluated by Dr. Perez on January 17, 2018 who recommended adjuvant whole breast radiation therapy with a boost to the tumor bed. ??Clinical trials were discussed. ??Proton therapy was discussed. 17. Evaluated by Dr. Barrow in Medical Oncology on January 17, 2018 who recommended continuation of 1 year of trastuzumab which will be delivered in [place]. ??He also recommended 5 years of tamoxifen. ??Follow-up in the Internal Medicine Breast Clinic was recommended. 18. Herceptin resumed every 3 weeks on January 25, 2018.? 19. Radiation therapy to the right breast from March 01, 2018 anticipated through March 27, 2018 delivering 5005 cGy in 19 fractions. Schedule of Surveillance Testing and Visits The basis for the surveillance testing schedule and test recommendations in this section are largely based on guidelines from the [place] [employer] (ASCO), the biggest cancer society regarding clinical practice. -Physical examinations should be performed every 3 to 6 months for the first 3 years, every 6 to 12months for years 4 and 5, and annually thereafter. -Monthly breast and/or chest wall self examinations. -Women who have undergone breast conserving surgery should have a post treatment mammogram 1 year after the initial mammogram and at least 6 months after completion of radiation therapy. Thereafter, unless otherwise indicated, a yearly mammographic evaluation should be performed. Surveillance visits How often: Every 6 months With Who: Alternate between local medical oncologist and [place] [id number] [facility] Additional information: Imaging (mammograms) How often: Annual bilateral diagnostic mammogram Where: [facility] Additional information: Follow-up care with your Primary Care Physician (PCP) Follow-up care with your primary care physician is recommended for age- appropriate cancer screenings, for monitoring blood pressure, cholesterol, blood sugar, weight, and for other medical conditions. Long- term Side effects Possible late and long-term effects of cancer treatment can include bone thinning, menopausal symptoms, and nerve damage. Please talk to your care team about ways to manage these side effects. Symptoms of Recurrence In addition, please contact your healthcare provider with any new symptoms that may signify a breast cancer recurrence including lumps or skin changes on your breast or chest wall, pain that lasts more than a few weeks, difficulty breathing, or unintentional weight loss. Wellness Recommendations: ?? Healthy food choices include a wide variety of fruits, vegetables, whole grains, poultry, and fish while minimizing refined grains, processed and red meats, desserts, and high?fat dairy products. ?? Exercise after cancer treatment improves quality of life, fatigue, mood, muscle strength, and physical functioning. It also decreases the risk of cancer recurrence and the risk of cardiovascular disease. Work up to exercising 30 minutes/day at least 5 days/week, and strive to achieve a healthy weight (BMI 18.5?25). ?? Alcohol use is linked to the risk of breast cancer recurrence. If you choose to drink alcohol, do so in moderation (no more than 7 drinks/week on average). ?? Tobacco use may also increase risk of breast cancer recurrence. If you smoke, talk to your doctor to help you quit. The [facility] can help. ?? Stress management tools such as meditation, prayer, and breathing exercises may be helpful. If you develop feelings of worry, anxiety, sadness, or hopelessness that persist for > 2 weeks, talk to a health care provider. ?? Sleep is important for healing and well-being. Most adults require 7?9 hours of sleep/night. If you are having difficulty sleeping, talk to your provider . Resolved Problems Problem Noted Date Diagnosed Date Resolved Date Malignant Neoplasm Of Breast Female Right 08/17/2017 09/25/2018 Malignant Primary Neoplasm ( Unknown Site) Unspecified 09/25/2018 Overview: breast
--- OUTSIDE RECORDS SUMMARY | 2023-12-15 13:30 | XMS_ITS | Encounter Summary ---
Author Organization [facility] Address [address] [place] [id number] Care Team Providers Care Cleat Maker Name Role Phone Elsewhere, Pcp Primary Care Provider Unavailabl e Encounter Details Date Type Department Care Team (Late st Contact Info) Description 11/27/2023 Orders Only Breast Diagnostic Clinic in [place], [place] [address] [place] [phone] Nelly Barger, BENDER HELPER, PIPE COVERING MOLDER [address] [place] [address] Perimenopause (Primary Dx) Social History Tobacco Use Types Packs/Day Years [...] often do you attend chur ch or baptism services? More than 4 times per year 06/29/2021 Do you belong to any clubs o r organizations such as quaker groups, unions, fraternal or athletic groups, or [...] Answer Date Recorded PHQ-2 Score 0 11/14/2018 [facility] Answer Date [...] place to sleep or slept in a chcf (including now)? No 06/29/2021 Nutrition Answer Date [...] as of this encounter Plan of Treatment Scheduled Orders Name Type Priority Associated Diagnoses Orde r Schedule Follicle-Stimulating Hormone (FSH), Serum Lab Routine Perimenopause Expected: 12/15/2023 (Approximate), Expires: 02/26/2025 Estradiol - (for men, children, and post-menopausal women) Lab Routine Perimenopause Expected: 12/15/2023 (Approximate), Expires: 11/26/2024 documented as of this encounter Visit Diagnoses Diagnosis Perimenopause- Primary documented in this encounter Care Teams Cleat Maker Relationship Specialty Start Date End Date Elsewhere, Pcp PCP - General Internal Medicine 08/20/21 Merry Munson M.D. [address] [place] [id number] Medical Oncology 01/01/18 Elva Adhikari M.D. [address] [address] Family Medicine 01/04/18 documented as of this encounter
--- OUTSIDE RECORDS SUMMARY | 2023-12-15 13:30 | XMS_ITS | Clinical Summary ---
Author Organization [email or web address] Address [place], [place] [address] Care Team Providers Care Career Discovery Teacher Name Role Phone Pcp, No Primary Care Provider Unavailabl e Allergies No known active allergies Medications Medication Sig Dispensed Refills Start Date End Date Status fluticasone, 50 mcg per actuation, nasal (FLONASE) 50 mcg/Actuation nasal sprayIndications:Al lergic rhinitis, cause unspecified Inhale 2 Sprays into both nostrils once daily. . 1 Bottle 11 02/14/2011 Active levonorgestrel intrauterine device (MIRENA) 20 mcg/24 hr (5 years) IUD Inject 1 Device intrauterine one time. 1 Device 0 07/01/2014 Active benzonatate (TESSALON PERLES) 100 mg capsuleIndications: Cough Take 1-2 capsules by mouth 3 times daily if needed for Cough. 40 capsule 1 06/22/2017 Active tamoxifen (NOLVADEX) 20 mg tablet Take 20 mg by mouth once daily. Active cholecalciferol (VITAMIN D3) 1,000 unit tablet Take 2,000 Units by mouth once daily. Active Immunizations Name Administration Dates Next Due AMB Influenza, ([facility]) Jasmin e Intranasal,LAIV4 (Flu Clinic Only) 05/22/2008 Influenza, IIV4 05/11/2016 Influenza,LAIV4 Live Intranasal ([facility]) 2008 Tdap 02/19/2008 Family History Medical History Relation Name Comments Other Father pulmonary embol us Anesthesia Problem No Family History Blood Disease No Family History Relation Name Status Comments Father Social History Tobacco Use Types Packs/Day Years Used Date Smoking Tobacco: Never Smokeless Tobacco: Never Tobacco Cessation:Counseling Given: Yes Alcohol Use Standard Drinks/Week Comments Yes 0 (1 standard drink = 0.6 oz pure alcohol) 1-2 drinks at a sitting 3 times monthly Sex and Gender Information Value Date Recorded Sex Assigned at Not on file Gender Identity Not on file Sexual Orientation Not on file Obstetrics History Para Term AB IAB SAB Ectopic Multiple Livin g Live Births 2 2 2 2 Date Outcome GA Total Labor Labor/2nd/3rd Weight Sex Type Anes PTL Jasmin A1 A5 Name Clin Term Term Comments 2 uncomplicated vaginal deli verjohn Last Filed Vital Signs Vital Sign Reading Time Taken Comments Blood Pressure 123/80 09/10/2018 1:11 PM CDT tow er Pulse 82 09/10/2018 1:11 PM CDT Temperature 36.6 ??C (97.9 ??F) 09/10/2018 1:11 PM CD T Respiratory Rate 20 06/14/2017 2:18 PM EXHIBIT TECHNICIAN Oxygen Saturation 100% 09/10/2018 1:11 PM CDT Inhaled Oxygen Concentration - - Weight 72.6 kg (160 lb) 09/10/2018 1:11 PM CDT Height 160 cm (5' 3) 09/10/2018 1:11 PM CDT Body Mass Index 28.34 09/10/2018 1:11 PM CDT Plan of Treatment Health Maintenance Due Date Last Done Comments HIV for age 15-65 1984 Hepatitis C screening for age 18-79 1987 Colonoscopy through age 75 2014 Lipids for age 45-75 2014 Mammogram for age 45-75 2014 Depression screening for age 12+ 05/11/2017 05/11/2016 Tetanus booster 02/18/2018 02/19/2008 Zoster (shingles) series for age 50+ (1 of 2) 2019 BMI (ht and wt on same day) for age 18+ 09/11/2019 09/10/2018, 05/11/2016 COVID-19 vaccine series (2022-24 season) 2023 Influenza for age 50-64 02/04/2024 05/11/2016 Pap test for age 21-65 06/22/2025 3, 06/22/2022, 10/23/2015, Additional history exists Tdap Completed 02/19/2008 Pneumococcal series for age 6-64 Aged Out No longer eligible based on patient's age to complete this topic Procedures Procedure Name Priority Date/Time Associated Diagnosis Comments HPV THIN PREP Routine 06/22/2022 1:30 PM EXHIBIT TECHNICIAN from Last 3 Months or Most Recently Relevant to Health Maintenance Results * HPV HIGH RISK (06/22/2022 1:30 PM EXHIBIT TECHNICIAN) TYPE 16 Negative Negative 06/28/2022 11:29 AM EXHIBIT TECHNICIAN [facility] TYPE 18 Negative Negative 06/28/2022 11:29 AM EXHIBIT TECHNICIAN [facility] OTHER HIGH RISK TYPES Negative Negative 06/28/2022 11:29 AM EXHIBIT TECHNICIAN [facility] Other (Cervical/Vagina l) 06/22/2022 1:30 PM EXHIBIT TECHNICIAN 06/24/2022 5:02 PM EXHIBIT TECHNICIAN Narrative [facility] - 06/28/2022 11:29 AM EXHIBIT TECHNICIAN HPV types 16, 18, 31, 33, 35, 39, 45, 51, 52, 56, 58, 59, 66 and 68 DNA were undetectable or below the pre-set threshold. Methodology: Umu Arley 4800 HPV Test Ermelinda Adhikari MD MICROBIOLOGY [facility] [address] [place] [address], from Last 3 Months or Most Recently Relevant to Health Maintenance Care Teams Career Discovery Teacher Relationship Specialty Start Date End Date Pcp, No . PCP - General 08/04/16
[2023-12-17 20:47] LABS: Follicle Stimulating Hormone 40.1 IU/L
[2023-12-17 23:16] LABS: Estradiol Premenol Female 24 pg/mL
== END 2023-12-15 13:29 | disposition home or self-care (01) ==
LOC: NPINS 13:28
PROVIDERS: PCP Family Medicine; Visit Provider Clinical Nurse Specialist
DX: Z78.0 Asymptomatic menopausal state (principal)
CPT/HCPCS: 82670; 83001